=== PATIENT | male | born 1990 | race Caucasian/White ===

== ENCOUNTER 2021-02-18 03:57 | Emergency (ER) | payer OTHER ==
[~2021-02-18] VITALS: Ht 182.9 cm; Wt 114.0 kg
--- NOTE | 2021-02-18 04:03 | PHYS DOC ---
General Adult HPI: HPI: "..I got really bad psoriasis. it gotten so much worse after being on some steroids for bronchitis.. now my skin inflamed..cracking and bleeding.." Patient is a 30 year old male who presents with above hx and complaints severe plaque psoriasis. Has been on Cosentyx in past. Follow with local woodwork teacher and deferred him back to prior dermatology in [facility]. . Patient has used topical emollients in the past. Patient denies any history of immunosuppression. No recent travel. No severe ill contacts. 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 Tetanus is up-to-date. COVID vaccination. Has not gotten flu vaccination this season. Patient recently moved to the area from [place]. And is working at local nursing home. Review of Systems: Review of Systems: Constitutional: Denies fever or chills Eyes: Denies change in visual acuity HENT: Denies nasal congestion or sore throat Respiratory: Denies cough or shortness of breath Cardiovascular: Denies chest pain or edema GI: Denies abdominal pain, nausea, vomiting, bloody stools or diarrhea : Denies dysuria Musculoskeletal: Denies back pain or joint pain Integument: Complains of severe psoriasis and secondary inflammatory rash Neurologic: Denies headache, focal weakness or sensory changes Endocrine: Denies polyuria or polydipsia Lymphatic: Denies swollen glands Psychiatric: Denies depression or anxiety Family History: Family History: Noncontributory presentation Current Medications: Current Meds: See nursing for home meds Allergies: Allergies: No known drug allergies Physical Exam: PE: Constitutional: in acute distress, non-toxic appearance. [] HENT: Normocephalic, atraumatic, bilateral external ears normal, oropharynx moist, no oral exudates, nose normal. [] Eyes: PERRLA, EOMI, conjunctiva normal, no discharge. [] Neck: Normal range of motion, no tenderness, supple, no stridor. [] Cardiovascular:Heart rate regular rhythm, no murmur [] Lungs & Thorax: Bilateral breath sounds clear to auscultation [] Abdomen: Bowel sounds normal, soft, no tenderness, no masses, no pulsatile masses. [] Skin: Warm, dry, no erythema, extensive psoriatic - plaque and gutate lesions. Has areas of skin that has cracked and is bleeding. Back: No tenderness, no CVA tenderness. [] Extremities: No tenderness, no cyanosis, no clubbing, ROM intact, no edema. [] Neurologic: Alert and oriented X 3, normal motor function, normal sensory function, no focal deficits noted. [] Psychologic: Affect anxious, judgement normal, mood normal. [] EKG: EKG: [] Radiology/Procedures: Radiology/Procedures: [] Heart Score: C/O Chest Pain: N/A Risk Factors: Risk Factors: DM, Current or recent (<one month) smoker, HTN, HLP, family history of CAD, obesity. Risk Scores: Score 0 - 3: 2.5% MACE over next 6 weeks - Discharge Home Score 4 - 6: 20.3% MACE over next 6 weeks - Admit for Clinical Observation Score 7 - 10: 72.7% MACE over next 6 weeks - Early Invasive Strategies Course & Med Decision Making: Course & Med Decision Making Pertinent Labs and Imaging studies reviewed. (See chart for details) Patient to follow-up with an outpatient physician so order can be placed for Cosentrx injections or equivalent. Would for now use very thin layer application of Dovonex twice a day. Apply A and D ointment to skin after shower and 4 times a day. Use A&E ointment after application of Dovonex. Would also start Bactrim DS 1 tablet twice a day for the next 10 days. Follow- up with dermatology. Follow-up with primary care. Return if any concerns. Impression: 1. Psoriasis exacerbation 2. Secondary cellulitis and skin breakdown due to the inflammation [] Dragon Disclaimer: Dragon Disclaimer: This electronic medical record was generated, in whole or in part, using a voice recognition dictation system. Departure Departure: Scripts Calcipotriene (Dovonex) 60 Gm Cream..g. 1 GM TP BID for psorasis, #30 EACH Prov: MARY LOU RIVERA MD 02/18/21 Sulfamethoxazole/Trimethoprim (BACTRIM DS TABLET) 1 Each Tablet 1 TAB PO BID for skin for 10 Days, #20 TAB 0 Refills Prov: MARY LOU RIVERA MD 02/18/21 Omayra Disclaimer This chart was dictated in whole or in part using Voice Recognition software in a busy, high-work load, and often noisy Emergency Department environment. It may contain unintended and wholly unrecognized errors or omissions. MARY LOU RIVERA MD Feb 18, 2021 04:03
[2021-02-18 04:16] VITALS: BP 125/83
[2021-02-18] MEDS ORDERED: CALC60CR2 TP (05:00)
[2021-02-18] MEDS ORDERED: SULF1TAB24 PO (05:00)
[2021-02-18] MEDS ORDERED: SMZ/TMP 800/160MG TABLET. PO ONE (05:30)
== END 2021-02-18 05:18 | disposition home or self-care (01) ==
LOC: ER 03:57
DX: L40.0 Psoriasis vulgaris (principal); L03.90 Cellulitis, unspecified
CPT/HCPCS: 99283